=== PATIENT | female | born 1995 | race Caucasian/White ===

== ENCOUNTER 2017-08-29 12:06 | Emergency (ER) | payer BC ==
[2017-08-29] MEDS ORDERED: fentaNYL 100 MCG/2 ML INJ ONE (12:16)
[2017-08-29] MEDS ORDERED: KETAMINE 200 MG/20 ML VIAL ONE (12:17)
[2017-08-29] MEDS ORDERED: MIDAZOLAM 2 MG/2 ML VIAL ONE (12:18)
--- NOTE | 2017-08-29 12:39 | EDPHY ---
H & P Time Seen by Provider: 08/29/17 12:10 HPI/ROS: CHIEF COMPLAINT: Left shoulder dislocation HISTORY OF PRESENT ILLNESS: Patient is a 21-year-old female who presents emergency department with left shoulder dislocation. Patient states she has dislocated her shoulder previously. The patient was swimming in the pool when she performed a stroke. She felt her shoulder pop out. She now has moderate to severe pain in left shoulder. She is unable to move it due to the pain. No numbness or tingling. REVIEW OF SYSTEMS: My complete review of systems is negative except as mentioned in the HPI. Past Medical/Surgical History: Includes previous shoulder dislocation, Achilles repair Social History: The patient is a student at [employer]. Physical Exam: 130/92, 79, 16, 97% on room air, 36.4 GENERAL: Mild acute distress, alert. HEENT: Eyes normal to inspection, normal pharynx, no signs of dehydration. NECK: [No thyromegaly, no lymphadenopathy, supple. RESPIRATORY: Clear to auscultation bilaterally, no rales, rhonchi or wheezing. CVS: Regular rate and rhythm, no rubs, murmurs, or gallops. ABDOMEN: Soft, nontender. BACK: Normal to inspection. SKIN: Normal color, no rash, warm, dry. No pallor. EXTREMITIES: Patient has a step-off at her left shoulder. Is consistent with shoulder dislocation. She has mild tenderness palpation over the deltoid. She is neurovascularly intact distally. The patient is wearing a boot on her right foot. NEURO/PSYCH: Alert and oriented x3, normal mood and affect, normal motor sensory exam. No obvious cranial nerve deficit. Constitutional: Initial Vital Signs Temperature (C) 36.4 C 08/29/17 12:06 Heart Rate 61 08/29/17 12:06 Respiratory Rate 16 08/29/17 12:06 Blood Pressure 109/81 H 08/29/17 12:06 O2 Sat (%) 97 08/29/17 12:06 O2 Delivery Mode [Procedural Room Air 3rd] O2 Delivery Mode [Procedural Non-Rebreather Mask 2nd] O2 Delivery Mode [Post Non-Rebreather Mask Procedure 1st] O2 Delivery Mode [Procedural Non-Rebreather Mask 1st] O2 Delivery Mode [.Immediate Non-Rebreather Mask Pre-Procedure] O2 Delivery Mode Room Air O2 (L/minute) [Procedural 2nd] 15 O2 (L/minute) [Post Procedure 15 1st] O2 (L/minute) [Procedural 1st] 15 O2 (L/minute) [.Immediate Pre- 15 Procedure] Allergies/Adverse Reactions: No Known Allergies Allergy (Verified 08/29/17 12:41) Home Medications: Medication Instructions Recorded NK [No Known Home Meds] 08/29/17 Medical Decision Making - Diagnostics Imaging Results: Imaging Impressions Shoulder X-Ray 08/29/17 12:11 Impression: Glenohumeral dislocation. Shoulder X-Ray 08/29/17 12:41 Impression: Anatomic realignment of the glenohumeral joint following closed reduction. Procedures: Procedure: Procedural sedation. Indication: Left shoulder dislocation. A pre-sedation evaluation was completed on the patient just prior to the procedure. Patient is an appropriate candidate for procedural sedation with ASA class E. The risks of the sedation were discussed including but not limited to dysrhythmia, need for airway intervention or general anesthesia, disability, ; and verbal consent obtained. A timeout was observed and patient's identity confirmed. The patient was sedated with ketamine 50 mg IV. The patient was monitored with continuous pulse oximetry, capnography, and equipment monitor phototypesetting. There were no complications and no significant hypoxemia. I remained at the bedside for the sedation. The total time I spent in the procedural sedation was 15 min . Procedure: Dislocation reduction. The shoulder was reduced in the usual fashion without complications. Post reduction the patient's neurovascular exam is normal. Post reduction x-ray demonstrates reduction of the joint to the anatomic position. The procedure was performed by myself. ED Course/Re-evaluation: In the emergency department I discussed possible etiologies with the patient. I answered all her questions. I attempted elevator arm with deltoid massage. She did not tolerate this. She was given fentanyl 50 mcg IV. An x-ray of her left shoulder was ordered. I discussed treatment options with the patient. She would prefer to have conscious sedation. I discussed the risks and benefits of this. The patient denies any allergies. Patient was given ketamine for conscious sedation. She was also given Versed 0.25 mg IV to help with potential emergence reaction. Patient tolerated the procedure well. Her shoulder was reduced with deltoid massage and elevation of brachium. Post reduction the patient was placed in a sling. She was neurovascular intact distally. She maintained her oxygen saturation and vital signs were normal during sedation. Post reduction x-ray: Normal alignment. No fracture or abnormality. Patient was given warnings prior to leaving. She will follow up with Orthopedics. Patient felt slightly dizzy upon rising. She was observed in the emergency department. 1405: On recheck the patient was doing well. She had no lightheadedness or dizziness. She felt her symptoms have resolved. Neurovascular intact distally. Differential Diagnosis: My differential includes but is not limited to fracture, dislocation, contusion , sprain, strain Departure - Departure Disposition: Home, Routine, Self-Care Clinical Impression: Dislocation of shoulder, left, closed Qualifiers: Encounter type: initial encounter Qualified Code(s): S43.005A - Unspecified dislocation of left shoulder joint, initial encounter Condition: Good Instructions: Shoulder Dislocation (ED) Additional Instructions: Wear your sling. Return with increasing pain, weakness, numbness or any other concerns. Referrals: Dusty Singh MD [Medical Doctor] - 5-7 days, call for appt.
[2017-08-29 14:19] VITALS: BP 132/91
== END 2017-08-29 14:23 | disposition home or self-care (01) ==
LOC: EDUNIT#
PROC: 0RSKXZZ Reposition Left Shoulder Joint, External Approach (ICD-10-PCS; principal; 2017-08-29)
DX: M24.412 Recurrent dislocation, left shoulder (principal)
CPT/HCPCS: J2250; J3010